=== PATIENT | male | born 2000 | race Caucasian/White ===

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

== ENCOUNTER 2022-05-01 13:46 | Outpatient (CLI) | payer OTHER ==
[2022-05-01 14:04] VITALS: BP 132/82
--- NOTE | 2022-05-01 14:04 | SLEEP CARE CONSULTATION ---
Information from patient questionnaire entered by Medina Gr. I have reviewed and concur with the information entered by Medina Gr. This document represents the service I personally performed and the decisions made by me, Gwendolyn Staples MD, [facility]. History of Present Illness Service Date and Time: 05/01/2022 1346 Reason for follow up: other (8MONTH F/U PT NEVER DID STUDY) Prior sleep studies: No HPI additional information: Mr. Castillo was suspected to have obstructive sleep apnea-hypopnea and scheduled to have an in-laboratory polysomnography back in July. The sleep study was never performed. His mother who is with him today says she canceled it because of the COVID pandemic. He now would like to pursue the evaluation. Sleep Study - Results Prior sleep studies: No Subjective Initial [place] Sleepiness Scale score: 3 (2021) Current [place] Sleepiness Scale score: 7 (05/01/2022) Allergies and Home Medications Drug allergies reviewed: Yes Home medication list reviewed: Yes Allergy and home medication list: Allergies No Known Drug Allergies Allergy (Verified 11/12/21 20:53) Review of Systems Review of systems same as previous: Yes Physical Exam Blood Pressure: 132/82 (left arm) Cuff size: long Heart Rate: 85 O2 Saturation: 95 Height: 5 ft 11 in Weight: 318 lb 9.6 oz Body Mass Index: 44.4 BMI Classification: Morbidly Obese Impression and Plan IMPRESSION: 1. Obstructive Sleep Apnea-Hypopnea Syndrome, as suggested by history of loud and irregular snoring, observed cessation of breath while asleep, frequent awakenings during the night, unrefreshed sleep, cognitive impairment, and daytime hypersomnolence. Narrow oropharynx and obesity are common predisposing factors for obstructive sleep apnea-hypopnea syndrome. Many symptoms of obstructive sleep apnea-hypopnea syndrome do overlap with those of depression. I recommend proceeding to polysomnography to confirm the diagnosis and to assess severity. If he has significant sleep disordered breathing, a manual CPAP titration study will also be performed to find the optimal treatment pressure. I informed the patient of what the sleep studies involve and after some discussion, he agreed to proceed. PLAN: 1. Schedule an in-laboratory polysomnography. 2. Try to lose weight. 3. Return for follow up after the sleep study. Follow up with Sleep Care in: 1-2 months Visit Type: In Office Time Spent with Patient (minutes): 12 Provider Statement: I spent 100% of the Face to Face Visit with the patient with greater than 50% spent counseling the patient and coordination of care.
== END 2022-05-01 13:47 | disposition home or self-care (01) ==
LOC: SC 13:46
PROVIDERS: ATTEND Internal Medicine Pulmonary Disease
DX: G47.10 Hypersomnia, unspecified (principal); R06.81 Apnea, not elsewhere classified; R41.89 Other symptoms and signs involving cognitive functions and awareness; G47.8 Other sleep disorders; R06.83 Snoring; E66.01 Morbid (severe) obesity due to excess calories; Z68.41 Body mass index [BMI] 40.0-44.9, adult
CPT/HCPCS: 99212

== ENCOUNTER 2022-05-31 19:40 | Outpatient (CLI) | payer OTHER | END 2022-05-31 19:41 | disposition home or self-care (01) | LOC: SC 19:40 | PROVIDERS: ATTEND Internal Medicine Pulmonary Disease | DX: R06.83 Snoring (principal); G47.8 Other sleep disorders; R06.81 Apnea, not elsewhere classified; G47.10 Hypersomnia, unspecified; E66.01 Morbid (severe) obesity due to excess calories | CPT/HCPCS: 95810 ==

== ENCOUNTER 2022-07-31 20:33 | Outpatient (CLI) | payer OTHER | END 2022-07-31 20:34 | disposition home or self-care (01) | LOC: SC 20:33 | PROVIDERS: ATTEND Internal Medicine Pulmonary Disease | DX: G47.33 Obstructive sleep apnea (adult) (pediatric) (principal); G47.61 Periodic limb movement disorder; E66.01 Morbid (severe) obesity due to excess calories; Z68.41 Body mass index [BMI] 40.0-44.9, adult | CPT/HCPCS: 95810 ==

== ENCOUNTER 2022-09-25 09:45 | Outpatient (CLI) | payer OTHER ==
[2022-09-25 10:16] VITALS: BP 142/92
--- NOTE | 2022-09-25 10:16 | SLEEP CARE CONSULTATION ---
Information from patient questionnaire entered by Fely Gr. I have reviewed and concur with the information entered by Fely Gr. This document represents the service I personally performed and the decisions made by me, Gwendolyn Staples MD, [facility]. History of Present Illness Service Date and Time: 09/25/2022 0945 Initial [place] Sleepiness Scale score: 3 (2021) Current [place] Sleepiness Scale score: 8 (09/25/22) Additional HPI information: Mr. Castillo returned with his mother for follow up of the sleep study he had on 07/31/2022. The polysomnography showed that the patient had reduced sleep efficiency due to frequent and prolonged awakenings throughout the night. The sleep architecture was abnormal for sleep fragmentation and reduced amount of time spent in REM sleep. Respiratory monitoring showed moderate obstructive sleep apnea-hypopnea (AHI = 25.3) associated with frequent arousals, oxyhemoglobin desaturation and moderate hypoxia (sravan oxygen saturation of 79%) . Baseline oxygen saturation was normal. The respiratory events occurred mainly during supine sleep (supine AHI = 34.6; non-supine = 5.78). Snore was moderate to loud in intensity. There was moderate periodic leg movement of sleep contributing to the sleep fragmentation. Cardiac rhythm was normal sinus rhythm without significant arrhythmia. No abnormal behavior (parasomnia) observed during the night. The patient was informed of these findings. I explained to him the pathophysiology behind obstructive sleep apnea. We then spent quite a bit of time discussing different treatment options. For mild obstructive sleep apnea, surgery and oral appliance are alternatives to nasal CPAP therapy but in moderate or severe cases, nasal CPAP is the most effective and reliable treatment. Weight loss in an obese individual is strongly recommended. After some discussion, he opted to go with the nasal CPAP therapy. I explained to him how CPAP machine works and what to expect when using the machine. He is encouraged to use CPAP every night especially in the first 2 to 3 nights in order to get used to it. He is familiar with CPAP because his father uses one. Sleep Study - Results Type of Sleep Study: Polysomnography (COMPLETED 07/31/22) Prior sleep studies: No Allergies and Home Medications Drug allergies reviewed: Yes Home medication list reviewed: Yes Allergy and home medication list: Allergies No Known Drug Allergies Allergy (Verified 11/12/21 20:53) Review of Systems Review of systems same as previous: Yes Physical Exam Vital signs obtained and entered by: FELY Dumont MA Blood Pressure: 142/92 (LEFT ARM) Cuff size: long Heart Rate: 98 O2 Saturation: 95 Height: 5 ft 11 in Weight: 318 lb 3.2 oz Body Mass Index: 44.4 BMI Classification: Morbidly Obese Uvula visualization: 100% Mallampati Class I Tonsils: small Neurologic: intact Impression and Plan IMPRESSION: 1. Obstructive Sleep Apnea-Hypopnea Syndrome, moderate, associated with moderate hypoxemia and sleep fragmentation. Most likely, this is the cause of the patients symptoms of unrefreshed sleep, and excessive daytime sleepiness. As mentioned above, the patient will be started on an autoCPAP set between 5 and 15 cmH2O. Depending on his response and compliance he may be brought back for an overnight CPAP titration study. PLAN: 1. Prescription made for an autoCPAP, heated humidifier, and related supplies through [facility] [employer]. 2. Attempt to lose weight. 3. Be careful with driving until his sleepiness resolves with the treatment. 4. Return for follow up after one month of using the CPAP. Counseling Topics: Weight loss health impact Prescriptions: Auto CPAP Follow up with Sleep Care in: 1-2 months Follow up recommended for: Weight management Visit Type: In Office Other Participants: Other (mother) Time Spent with Patient (minutes): 15 Provider Statement: I spent 100% of the Face to Face Visit with the patient with greater than 50% spent counseling the patient and coordination of care.
== END 2022-09-25 09:46 | disposition home or self-care (01) ==
LOC: SC 09:45
PROVIDERS: ATTEND Internal Medicine Pulmonary Disease
DX: G47.33 Obstructive sleep apnea (adult) (pediatric) (principal); E66.01 Morbid (severe) obesity due to excess calories; Z68.41 Body mass index [BMI] 40.0-44.9, adult
CPT/HCPCS: 99212

== ENCOUNTER 2023-01-05 08:56 | Outpatient (CLI) | payer OTHER ==
--- NOTE | 2023-01-05 09:25 | Sleep Patient Instructions ---
Sleep Center Visit Summary - Patient Visit Information Reason for Visit: Compliance followup for CPAP therapy - Patient Instructions Additional Instructions: You were here for follow up of CPAP therapy. You will be continued on CPAP therapy with pressure at 7-13 cmH2O. Please let us know if the pressure change is uncomfortable and we can make further adjustments of the pressure. You should follow up with sleep care in 1-2 months. You may contact us sooner for any questions or concerns. - Clinic Information Contact: [facility] [address] [place] [address] [email or web address] T: [phone]
--- NOTE | 2023-01-05 09:31 | SLEEP CARE CONSULTATION ---
Information from patient questionnaire entered by Fely Gr. I have reviewed and concur with the information entered by Fely Gr. This document represents the service I personally performed and the decisions made by , Swetha Banda ARNP. History of Present Illness Service Date and Time: 01/05/2023 0856 Previous diagnosis: Moderate, Obstructive Sleep Apnea-Hypopnea Syndrome AHI: 25.3 (in 07/2022) Reason for follow up: other (F/U LAST SEEN 11/28) Equipment type: CPAP (Resmed Airsense 11, s/u 10/2022) Mask style: Full face (Vitera) Backup mask available: No (will keep old mask when replaced) Last cushion change: 2.5 week Prior sleep studies: No Type of Sleep Study: Polysomnography (COMPLETED 07/31/22) HPI additional information: DAGMAR HAYDEN was diagnosed to have moderate, AHI 25.3, obstructive sleep apnea- hypopnea syndrome and returned today for CPAP therapy first compliance follow- up. Sleep Study - Results Type of Sleep Study: Polysomnography (COMPLETED 07/31/22) Prior sleep studies: No CPAP Compliance Data - Data Reviewed with Patient Average duration of nightly device use: 8 hours 38 minutes Compliance rate %: 90 ( days used) Current pressure setting (cmH2O): 5-15 (median 6.7, avg 11.4, max 13.1) Average residual AHI: 0.7 Central apnea: 0 Obstructive apnea: 0.1 Hypopnea: 0.5 Average large leak: 4.2 L/min Subjective Patient concerns: reports: mask discomfort (straps ), condensation in mask/hose (occasional, hotter nights), nasal congestion. denies: aerophagia, air blowing in eyes, mask leak noise, dry mouth, nose, throat, epistaxis Observed to snore while using device: No Current pressure setting perceived as: comfortable On therapy, patient: reports: sleeping better, awakening more refreshed, being more awake and alert during the day, more rested overall. denies: drowsiness while driving Initial [place] Sleepiness Scale score: 3 (2021) Current [place] Sleepiness Scale score: 3 (01/05/23) Allergies and Home Medications Known drug allergies: No Drug allergies reviewed: Yes Home medication list reviewed: Yes (Buspirone, Buspar, Fluoxetine) Allergy and home medication list: Allergies No Known Drug Allergies Allergy (Verified 01/04/23 13:43) Review of Systems Review of systems same as previous: Yes (no change) Physical Exam Vital signs obtained and entered by: FELY Dumont MA Blood Pressure: 128/76 (LEFT ARM) Cuff size: long Heart Rate: 96 O2 Saturation: 79 Height: 5 ft 11 in Weight: 318 lb 9.6 oz Body Mass Index: 44.4 BMI Classification: Morbidly Obese Impression and Plan 1. Obstructive Sleep Apnea-Hypopnea Syndrome, moderate, with good treatment compliance and good apnea control. On CPAP therapy, the patient has better sleep quality and is more rested overall. Patient has been tolerating pressure well with current settings. I will adjust to the pressures he is using. The patients pressure will be changed to autoCPAP 7-13 cmH20 to reflect pressure se tting. Patient advised to contact me if pressure change is uncomfortable so that it can be adjusted. Goals for apnea control discussed. Patient has significant improvement of their sleep apnea and is satisfied with current CPAP therapy. He has had some nasal congestion with using his CPAP as well as condensation occasionally. I discussed with him how to adjust his humidifier and heated hose to reduce condensation and dryness. He states the mask discomfort is just a little bit with the straps but he feels it is tolerable as he gets more used to it. Patient's apnea severity and rationale for treatment to reduce apnea, improve sleep quality and reduce cardiovascular and cerebrovascular events was reviewed. I also reviewed the benefit of consistent device use of CPAP for depression/anxiety. 2. Obesity, unspecified. Currently patients BMI is 44.4. He states he is trying to make better food choices to lose weight. I advised him to continue with this, try portion control and increase activity. Obesity increases the risk of apnea, CPAP pressure requirements and overall health risks especially cardiovascular and diabetes. Thus patient is advised to lose weight. * Change auto CPAP pressure to 7-13 cmH2O * Notify me if snoring with mask or feeling that the pressure is too much or too little * Attempt to lose weight * Call this office if any problems using CPAP * Return for follow up in 1-2 months, or sooner if concerns arise Counseling Topics: Spare mask, Weight loss health impact Visit Type: In Office Time Spent with Patient (minutes): 20 Provider Statement: I spent 100% of the Face to Face Visit with the patient with greater than 50% spent counseling the patient and coordination of care.
[2023-01-05 09:38] VITALS: BP 128/76
== END 2023-01-05 08:57 | disposition home or self-care (01) ==
LOC: SC 08:56
PROVIDERS: ATTEND Nurse Practitioner Family
DX: G47.33 Obstructive sleep apnea (adult) (pediatric) (principal); E66.01 Morbid (severe) obesity due to excess calories; Z68.41 Body mass index [BMI] 40.0-44.9, adult
CPT/HCPCS: 99212; 99213

== ENCOUNTER 2023-02-08 12:58 | Outpatient (CLI) | payer OTHER ==
--- NOTE | 2023-02-08 13:18 | Sleep Patient Instructions ---
Sleep Center Visit Summary - Patient Visit Information Reason for Visit: One month followup for PAP therapy - Patient Instructions Additional Instructions: You were here for follow up of CPAP therapy. You will be continued on CPAP therapy with pressure at 7-13 cmH2O. You should follow up with sleep care in 3 months. You may contact us sooner for any questions or concerns. - Clinic Information Contact: [facility] [address] [place] [address] [email or web address] T: [phone]
--- NOTE | 2023-02-08 13:21 | SLEEP CARE CONSULTATION ---
Information from patient questionnaire entered by Fely Gr. I have reviewed and concur with the information entered by Fely Gr. This document represents the service I personally performed and the decisions made by , Swetha Banda ARNP. History of Present Illness Service Date and Time: 02/08/2023 1258 Previous diagnosis: Moderate, Obstructive Sleep Apnea-Hypopnea Syndrome AHI: 25.3 Reason for follow up: one month (F/U) Equipment type: CPAP (ResMed 11, s/u ) Equipment obtained from: Other ([facility]; has ordered some supplies) Mask style: Full face Backup mask available: No (will keep old mask when replaced) Last cushion change: last month Prior sleep studies: No Type of Sleep Study: Polysomnography (COMPLETED 07/31/22) HPI additional information: DAGMAR HAYDEN was diagnosed to have moderate, AHI 25.3, obstructive sleep apnea- hypopnea syndrome and returned today for CPAP therapy one month follow-up. Sleep Study - Results Type of Sleep Study: Polysomnography (COMPLETED 07/31/22) Prior sleep studies: No CPAP Compliance Data - Data Reviewed with Patient Average duration of nightly device use: 9 HRS 10 MINS Compliance rate %: 97 (01/04/23-02/02/23; days used) Current pressure setting (cmH2O): 7-13 Average residual AHI: 0.7 Central apnea: 0 Obstructive apnea: 0.2 Hypopnea: 0.4 Average large leak: 8 L/min Subjective Patient concerns: reports: other (wear on headstrap velcro). denies: aerophagia, mask discomfort, air blowing in eyes, mask leak noise, condensation in mask/hose, nasal congestion, dry mouth, nose, throat, epistaxis Observed to snore while using device: No Current pressure setting perceived as: comfortable On therapy, patient: reports: sleeping better, awakening more refreshed, being more awake and alert during the day, more rested overall. denies: drowsiness while driving (not driving recently) Initial [place] Sleepiness Scale score: 3 (2021) Current [place] Sleepiness Scale score: 1 (02/08/23) Allergies and Home Medications Known drug allergies: No Drug allergies reviewed: Yes Home medication list reviewed: Yes (Fluoxetine 40 mg; Buspirone 7.5 mg; Bupropion XL 300 mg) Allergy and home medication list: Allergies No Known Drug Allergies Allergy (Verified 02/08/23 08:41) Review of Systems Review of systems same as previous: Yes (no changes) Physical Exam Vital signs obtained and entered by: FELY Dumont MA Blood Pressure: 128/76 (LEFT ARM) Cuff size: long Heart Rate: 84 O2 Saturation: 97 Height: 5 ft 11 in Weight: 320 lb 6.4 oz Weight change since last visit: 2 lb gain Body Mass Index: 44.6 BMI Classification: Morbidly Obese Impression and Plan 1. Obstructive Sleep Apnea-Hypopnea Syndrome, moderate, with good treatment compliance and good apnea control. On CPAP therapy, the patient has better sleep quality and is more rested overall. Patient has significant improvement of their sleep apnea and is satisfied with current CPAP therapy. He has not gotten more supplies but has ordered some recently. He says his headgear velcro is wearing out some but he can still keep mask on his head. He has no other complaints or issues with CPAP use. Patient's apnea severity and rationale for treatment to reduce apnea, improve sleep quality and reduce cardiovascular and cerebrovasc ular events was reviewed. I also reviewed the benefit of consistent device use of CPAP for depression/anxiety. 2. Obesity, unspecified. Currently patients BMI is 44.6. He is trying to lose weight by exercising more and watching food portions. Obesity increases the risk of apnea, CPAP pressure requirements and overall health risks especially cardiovascular and diabetes. Thus patient is advised to continue to try to lose weight. * Continue auto CPAP pressure at 7-13 cmH2O * Notify me if snoring with mask or feeling that the pressure is too much or too little * Attempt to lose weight * Call this office if any problems using CPAP * Return for follow up in 3 months, or sooner if concerns arise Counseling Topics: Spare mask, Weight loss health impact Visit Type: In Office Time Spent with Patient (minutes): 12 Provider Statement: I spent 100% of the Face to Face Visit with the patient with greater than 50% spent counseling the patient and coordination of care.
[2023-02-08 13:28] VITALS: BP 128/76
== END 2023-02-08 12:59 | disposition home or self-care (01) ==
LOC: SC 12:58
PROVIDERS: ATTEND Nurse Practitioner Family
DX: G47.33 Obstructive sleep apnea (adult) (pediatric) (principal); E66.01 Morbid (severe) obesity due to excess calories; Z68.41 Body mass index [BMI] 40.0-44.9, adult
CPT/HCPCS: 99212

== ENCOUNTER 2023-05-11 12:42 | Outpatient (CLI) | payer OTHER ==
--- NOTE | 2023-05-11 13:07 | Sleep Patient Instructions ---
Sleep Center Visit Summary - Patient Visit Information Reason for Visit: 3 month followup - Patient Instructions Additional Instructions: You were here for follow up of CPAP therapy. You will be continued on CPAP therapy with pressure at 7-13 cmH2O. You should follow up with sleep care in 6 months. You may contact us sooner for any questions or concerns. - Clinic Information Contact: [facility] [address] [place] [id number] [email or web address] T: [phone]
--- NOTE | 2023-05-11 13:10 | SLEEP CARE CONSULTATION ---
Information from patient questionnaire entered by Fely Gr. I have reviewed and concur with the information entered by Fely Gr. This document represents the service I personally performed and the decisions made by , Swetha Banda ARNP. History of Present Illness Service Date and Time: 05/11/2023 1242 Previous diagnosis: Moderate, Obstructive Sleep Apnea-Hypopnea Syndrome AHI: 25.3 Reason for follow up: three month (F/U) Equipment type: CPAP (Resmed Airsense 11; s/u 10/2022) Equipment obtained from: Other ([facility]; getting supplies) Mask style: Full face Backup mask available: No Last cushion change: 1 month Prior sleep studies: No Type of Sleep Study: Polysomnography (COMPLETED 07/31/22) HPI additional information: DAGMAR HAYDEN was diagnosed to have moderate, AHI 25.3, obstructive sleep apnea-hypopnea syndrome and returned today for CPAP therapy three month follow- up. Sleep Study - Results Type of Sleep Study: Polysomnography (COMPLETED 07/31/22) Prior sleep studies: No CPAP Compliance Data - Data Reviewed with Patient Average duration of nightly device use: 9 HRS 29 MINS Compliance rate %: 98 (02/08/23-05/08/23; 90/90 days used) Current pressure setting (cmH2O): 7-13 Average residual AHI: 0.7 Central apnea: 0 Obstructive apnea: 0.1 Hypopnea: 0.5 Average large leak: 6.1 L/min Subjective Patient concerns: reports: dry mouth, nose, throat. denies: aerophagia, mask discomfort, air blowing in eyes, mask leak noise, condensation in mask/hose, nasal congestion, epistaxis Observed to snore while using device: No Current pressure setting perceived as: comfortable On therapy, patient: reports: sleeping better, awakening more refreshed, being more awake and alert during the day, more rested overall. denies: drowsiness while driving Initial [place] Sleepiness Scale score: 3 (2021) Current [place] Sleepiness Scale score: 3 (05/11/23) Allergies and Home Medications Known drug allergies: No Drug allergies reviewed: Yes Home medication list reviewed: Yes (no changes) Allergy and home medication list: Allergies No Known Drug Allergies Allergy (Verified 05/10/23 13:21) Review of Systems Review of systems same as previous: Yes (NO CHANGE) Physical Exam Vital signs obtained and entered by: FELY Dumont MA Blood Pressure: 114/72 (LEFT ARM) Cuff size: long Heart Rate: 93 O2 Saturation: 95 Height: 5 ft 11 in Weight: 324 lb 0.32 oz Body Mass Index: 45.1 BMI Classification: Morbidly Obese Impression and Plan 1. Obstructive Sleep Apnea-Hypopnea Syndrome, moderate, with good treatment compliance and good apnea control. On CPAP therapy, the patient has better sleep quality and is more rested overall. He gets occasional dry mouth. Oral dryness can be reduced by adjusting humidity setting higher or heated hose lower or by adjusting both settings. Printed instructions given on how to change humidity and heated hose settings with rationale explaining why to change. Oral dryness can also be reduced by reducing mask leaks. Patient has significant improvement of their sleep apnea and is satisfied with current CPAP therapy. I will have him return in 6 months for followup. Patient's apnea severity and rationale for treatment to reduce apnea, improve sleep quality and reduce cardiovascular and cerebrovascular events was reviewed. I also reviewed the benefit of consistent device use of CPAP for depression/anxiety. 2. Obesity, unspecified. Currently patients BMI is 45.1. Obesity increases the risk of apnea, CPAP pressure requirements and overall health risks especially cardiovascular and diabetes. Thus patient is advised to lose weight. * Continue auto CPAP pressure at 7-13 cmH2O * Notify me if snoring with mask or feeling that the pressure is too much or too little * Attempt to lose weight * Call this office if any problems using CPAP * Return for follow up in 6 months, or sooner if concerns arise Counseling Topics: Spare mask, Weight loss health impact Follow up with Sleep Care in: 6 months Visit Type: In Office Time Spent with Patient (minutes): 12 Provider Statement: I spent 100% of the Face to Face Visit with the patient with greater than 50% spent counseling the patient and coordination of care.
[2023-05-11 13:11] VITALS: BP 114/72; O2SAT 95
== END 2023-05-11 12:43 | disposition home or self-care (01) ==
LOC: SC 12:42
PROVIDERS: ATTEND Nurse Practitioner Family
DX: G47.33 Obstructive sleep apnea (adult) (pediatric) (principal); E66.01 Morbid (severe) obesity due to excess calories; Z68.42 Body mass index [BMI] 45.0-49.9, adult
CPT/HCPCS: 99212

== ENCOUNTER 2023-09-24 08:19 | Outpatient (CLI) | payer OTHER ==
[2023-09-24 12:04] LABS: BASOPHILS # (AUTO) 0.1 10^3/uL (0.0-0.1); BASOPHILS % (AUTO) 0.7 %; EOSINOPHILS # (AUTO) 0.6 10^3/uL (0.0-0.7); EOSINOPHILS % (AUTO) 5.5 %; HCT - HEMATOCRIT 48.7 % (42.0-52.0); HGB - HEMOGLOBIN 16.3 g/dL (14.0-18.0); LYMPHOCYTES # (AUTO) 4.4 10^3/uL (1.5-3.5); LYMPHOCYTES % (AUTO) 40.8 %; MEAN CORPUSCULAR HEMOGLOBIN 27.7 pg (27.0-31.0); MEAN CORPUSCULAR HGB CONC 33.5 g/dL (32.0-36.0); MEAN CORPUSCULAR VOLUME 82.8 fL (80.0-94.0); MONOCYTES # (AUTO) 0.9 10^3/uL (0.0-1.0); MONOCYTES % (AUTO) 8.5 %; NEUTROPHILS # (AUTO) 4.8 10^3/uL (1.5-6.6); NEUTROPHILS % (AUTO) 44.2 %; PLT - PLATELET COUNT 290 10^3/uL (130-450); RED BLOOD COUNT 5.88 10^6/uL (4.70-6.10); RED CELL DISTRIBUTION WIDTH 12.3 % (12.0-15.0); WHITE BLOOD COUNT 10.7 x10^3/uL (4.8-10.8)
[2023-09-24 12:23] LABS: ALBUMIN 4.4 g/dL (3.2-5.5); ALBUMIN/GLOBULIN RATIO 1.8 (1.0-2.2); ALKALINE PHOSPHATASE 48 IU/L (42-121); ALT ALANINE AMINOTRANSFERASE 58 IU/L (10-60); AST ASPARTATE AMINOTRANSFERASE 28 IU/L (10-42); BILIRUBIN,TOTAL 0.4 mg/dL (0.2-1.0); BUN - BLOOD UREA NITROGEN 14 mg/dL (6-20); CALCIUM 9.7 mg/dL (8.5-10.3); CARBON DIOXIDE - CO2 26 mmol/L (21-32); CHLORIDE 102 mmol/L (101-111); CHOLESTEROL 159 mg/dL; CREATININE 0.9 mg/dL (0.6-1.3); GFR - MDRD 107 (>89); GLUCOSE 97 mg/dL (74-104); HDL CHOLESTEROL 40 mg/dL; LDL CHOLESTEROL,CALCULATED 68 mg/dL; LDL/HDL RATIO 1.7 (<3.6); POTASSIUM 3.9 mmol/L (3.5-4.5); SODIUM 134 mmol/L (135-145); TOTAL PROTEIN 6.8 g/dL (6.4-8.9); TRIGLYCERIDES 255 mg/dL (48-352); VLDL CHOLESTEROL 51 mg/dL
[2023-09-24 12:29] LABS: ESTIMATED AVERAGE GLUCOSE 100 mg/dL (70-100); HEMOGLOBIN A1c% 5.1 % (4.27-6.07)
[2023-09-24 12:35] LABS: THYROID STIMULATING HORMONE 2.93 uIU/mL (0.34-5.60)
== END 2023-09-24 08:20 | disposition home or self-care (01) ==
LOC: LAB.N 08:19
PROVIDERS: ATTEND Internal Medicine
DX: K76.0 Fatty (change of) liver, not elsewhere classified (principal); R73.02 Impaired glucose tolerance (oral); F32.A Depression, unspecified
CPT/HCPCS: 36415; 80053; 80061; 83036; 83721; 84443; 85025

== ENCOUNTER 2023-11-13 13:15 | Outpatient (CLI) | payer OTHER ==
--- NOTE | 2023-11-13 13:08 | SLEEP CARE CONSULTATION ---
Information from patient questionnaire entered by Medina Gr. I have reviewed and concur with the information entered by Medina Gr. This document represents the service I personally performed and the decisions made by , Swetha Banda ARNP. History of Present Illness Service Date and Time: 11/13/2023 1300 Previous diagnosis: Moderate, Obstructive Sleep Apnea-Hypopnea Syndrome AHI: 25.3 Reason for follow up: six month (F/U) Equipment type: CPAP (Resmed Airsense 11; s/u 10/2022) Equipment obtained from: Other ([facility]; getting supplies) Mask style: Full face Mask brand: Vitera Backup mask available: Yes Last cushion change: 2 weeks Prior sleep studies: No Type of Sleep Study: Polysomnography (COMPLETED 07/31/22) HPI additional information: DAGMAR HAYDEN was diagnosed to have moderate, AHI 25.3, obstructive sleep apnea- hypopnea syndrome and returns via video appointment today for CPAP therapy six month follow-up. Sleep Study - Results Type of Sleep Study: Polysomnography (COMPLETED 07/31/22) Prior sleep studies: No CPAP Compliance Data - Data Reviewed with Patient Average duration of nightly device use: 9 HRS 43 MINS Compliance rate %: 100 (05/12/23-11/07/23; 180/180 days used) Current pressure setting (cmH2O): 7-13 Average residual AHI: 0.7 Central apnea: 0 Obstructive apnea: 0.2 Hypopnea: 0.4 Subjective Patient concerns: denies: aerophagia, mask discomfort, air blowing in eyes, mask leak noise, condensation in mask/hose, nasal congestion, dry mouth, nose, throat, epistaxis Observed to snore while using device: No Current pressure setting perceived as: comfortable (too low at beginning of night) On therapy, patient: reports: sleeping better, awakening more refreshed, being more awake and alert during the day, more rested overall. denies: drowsiness while driving Initial [place] Sleepiness Scale score: 3 (2021) Current [place] Sleepiness Scale score: 4 Allergies and Home Medications Known drug allergies: No Drug allergies reviewed: Yes Home medication list reviewed: Yes (no changes) Allergy and home medication list: Allergies No Known Drug Allergies Allergy (Verified 11/08/23 09:11) Review of Systems Review of systems same as previous: Yes (no changes) Physical Exam Vital signs obtained and entered by: SWETHA CRUZ Height: 5 ft 11 in Weight: 314 lb (per pt) Body Mass Index: 43.7 BMI Classification: Morbidly Obese Impression and Plan 1. Obstructive Sleep Apnea-Hypopnea Syndrome, moderate, with good treatment compliance and good apnea control. On CPAP therapy, the patient has better sleep quality and is more rested overall. Patient feels like the initial pressure is too low. He has his ramp starting pressure off. The patients pressure will be changed to autoCPAP 9-13 cmH20 for patient comfort. Patient advised to contact me if pressure change is uncomfortable so that it can be adjusted. Goals for apnea control discussed. Patient's apnea severity and rationale for treatment to reduce apnea, improve sleep quality and reduce cardiovascular and cerebrovascular events was reviewed. I also reviewed the benefit of consistent device use of CPAP for depression/anxiety. 2. Obesity, unspecified. Currently patients BMI is 43.7. Obesity increases the risk of apnea, CPAP pressure requirements and overall health risks especially cardiovascular and diabetes. Thus patient is advised to lose weight. * Change auto CPAP pressure to 9-13 cmH2O * Notify me if snoring with mask or feeling that the pressure is too much or too little * Attempt to lose weight * Call this office if any problems using CPAP * Return for follow up in 12 months, or sooner if concerns arise Counseling Topics: Spare mask, Weight loss health impact Follow up with Sleep Care in: 1 year Visit Type: Telehealth Video Video Type: Doximity Patient Location: Home Location of Provider: Office Patient agrees and consents to this telehealth visit type: Yes Time Spent with Patient (minutes): 12 Provider Statement: I spent 100% of the Telehealth Video Call with the patient with greater than 50% spent counseling the patient and coordination of care.
== END 2023-11-13 13:16 | disposition home or self-care (01) ==
LOC: SC 13:15
PROVIDERS: ATTEND Nurse Practitioner Family
DX: G47.33 Obstructive sleep apnea (adult) (pediatric) (principal); E66.01 Morbid (severe) obesity due to excess calories; Z68.41 Body mass index [BMI] 40.0-44.9, adult